=== PATIENT | male | born 1990 | race African-American/Black ===

== ENCOUNTER 2016-05-13 10:39 | Day surgery (SDC) | payer OTHER ==
[~2016-05-13] VITALS: Ht 182.9 cm; Wt 100.5 kg
[2016-05-13] VITALS (18 sets, daily range): BP systolic 122–153; BP diastolic 56–88; PULSE 46–75; RESP 14–25; Ht 182.9 cm; Wt 100.5 kg
[~2016-05-13 10:39] MED LIST: EPHEDrine SULFATE 50 MG/5 ML SYG ONE
[2016-05-13] MEDS ORDERED: CEFAZOLIN 2 GM/50 ML (PMX) 50 ML IVPB SCH (11:30)
[2016-05-13] MEDS ORDERED: SOD CHLORIDE 0.9% 1,000 ML IV SCH (11:30)
[2016-05-13 11:40] LABS: ADD SCAN DIFF NO
[2016-05-13] MEDS ORDERED: VIT D (11:43)
[2016-05-13 11:45] LABS: BASOPHILS % 0.4 % (0.0-2.0); EOSINOPHILS # 0.2 10^3/ul (0.0-0.5); EOSINOPHILS % 2.8 % (0.0-7.0); HEMATOCRIT 44.8 % (42.0-52.0); HEMOGLOBIN 14.3 g/dl (14.0-18.0); LYMPHOCYTES # 2.8 10^3/ul (0.8-2.9); LYMPHOCYTES % 39.9 % (15.0-51.0); MEAN CORPUSCULAR HGB CONC 31.9 g/dl (32.0-37.0); MEAN CORPUSCULAR VOLUME 84.7 fl (82.0-101.0); MEAN PLATELET VOLUME 10.2 fl (7.4-10.4); MONOCYTE # 0.8 10^3/ul (0.3-0.9); MONOCYTES % 10.7 % (0.0-11.0); NEUTROPHIL # 3.2 10^3/ul (1.6-7.5); NEUTROPHILS % 45.8 % (39.0-77.0); PLATELET COUNT 301 10^3/UL (140-415); RED BLOOD COUNT 5.29 10^6/ul (4.70-6.10); RED CELL DISTRIBUTION WIDTH 13.5 % (11.5-14.5); WHITE BLOOD COUNT 7.1 10^3/ul (4.8-10.8)
[2016-05-13 11:54] LABS: CALCIUM 9.2 mg/dl (8.4-10.2); POTASSIUM 4.5 mmol/L (3.5-5.1)
[2016-05-13 12:09] LABS: INR 1.08; PT RATIO 1.1
[2016-05-13 12:10] LABS: PARTIAL THROMBOPLASTIN TIME 28.1 Sec (25.0-35.0)
[2016-05-13] MEDS ORDERED: BUPIVACAINE 0.25% (MPF) 30 ML INJ ONE (12:50)
[2016-05-13] MEDS ORDERED: POLYMYXIN/BACITRACIN 1L IRRIG ONE (12:50)
[2016-05-13] MEDS ORDERED: ROCURONIUM 50 MG INJ ONE (13:22)
[2016-05-13] MEDS ORDERED: LIDOCAINE 2% (SDV) 5 ML INJ ONE (13:22)
[2016-05-13] MEDS ORDERED: SUCCINYLCHOLINE CHLORIDE 100 MG/5 ML SYG IV ONE (13:22)
[2016-05-13] MEDS ORDERED: MIDAZOLAM 1 MG/ML 2 ML INJ ONE (13:22)
[2016-05-13] MEDS ORDERED: FENTAnyl 50 MCG/ML VIAL ONE (13:22)
[2016-05-13] MEDS ORDERED: PROPOFOL 20 ML ONE (13:22)
[2016-05-13] MEDS ORDERED: CEFAZOLIN 1 GM INJ ONE (13:32)
[2016-05-13] MEDS ORDERED: FAMOTIDINE 20 MG INJ ONE (13:32)
[2016-05-13] MEDS ORDERED: ONDANSETRON 4 MG INJ ONE (13:32)
[2016-05-13] MEDS ORDERED: DEXAMETHASONE 4 MG/ML 1 ML INJ ONE (13:32)
[2016-05-13] MEDS ORDERED: GLYCOPYRROLATE 0.4 MG INJ ONE (13:59)
[2016-05-13] MEDS ORDERED: PROCHLORPERAZINE 10 MG INJ IV PRN (14:00)
[2016-05-13] MEDS ORDERED: ONDANSETRON 4 MG INJ IV PRN (14:00)
[2016-05-13] MEDS ORDERED: HYDROmorphONE (0.2 MG/ML) 10ML SYG IV PRN ×3 (14:00)
[2016-05-13] MEDS ORDERED: DIPHENHYDRAMINE 50 MG INJ IV PRN (14:00)
[2016-05-13] MEDS ORDERED: MEPERIDINE 25 MG INJ IV PRN (14:00)
[2016-05-13] MEDS ORDERED: NEOSTIGMINE 3 MG/3 ML SYRINGE ONE ×2 (14:00)
[2016-05-13] MEDS ORDERED: OXYCODONE/ACETAMINOPHEN (5/325) TAB PO PRN (14:00)
[2016-05-13] MEDS ORDERED: KETOROLAC 30 MG INJ ONE (14:04)
[2016-05-13] MEDS ORDERED: HYDROCODONE/APAP (5/325) TAB PO ONE (14:30)
--- NOTE | 2016-05-13 14:39 | OPR ---
DATE OF OPERATION: 05/13/2016 INDICATION: This is a 25-year-old male with a left inguinal hernia. He requests surgical repair. Risks, alternatives, benefits, and personnel were discussed with the patient. The patient expressed understanding and consents to the operation. PREOPERATIVE DIAGNOSIS: Left inguinal hernia. POSTOPERATIVE DIAGNOSIS: Left inguinal hernia. OPERATION: Open left inguinal hernia repair with medium-sized Ultrapro hernia system mesh. SURGEON: Ning Arciniega MD SPECIMEN: None. COMPLICATIONS: None. ANESTHESIA: General. DESCRIPTION OF PROCEDURE: The patient was taken to the OR and prepped and draped in the usual ster ile fashion. Surgical timeout was performed. IV antibiotics were given. Left inguinal oblique inc ision is made with a 10 blade. Dissection cautery was carried down to the external oblique fascia w hich was opened with a 15 blade. This incision was extended medial inferiorly and lateral superiorl y with Metzenbaum scissors. Cord structures were encircled with a Erica drain. Indirect hernia w as identified and reduced and bolstered by the disk portion of the Ultrapro hernia system mesh. Thi s was secured in place with a running 0 Prolene from the pubic tubercle along the shelving edge of t he inguinal ligament and superior to the internal oblique with interrupted 3-0 Vicryl. Onlay mesh w as secured in a similar fashion with a running 0 Prolene from the pubic tubercle along the shelving edge of the inguinal ligament. Straps were created and reapproximated with interrupted 0 Prolene to recreate the inguinal ring. The onlay mesh was secured to the internal oblique with interrupted 3- 0 Vicryl. External oblique fascia was closed with running 3-0 Vicryl. Arleen's was closed with int errupted 3-0 Vicryl. Skin was closed using skin sudhakar. Local anesthesia was injected. Dry dress ings were applied. Dictated By: NING WAN/BROOK Conf#: [id number] DID#: [id number]
[2016-05-13] MEDS: FENTAnyl 50 MCG/ML VIAL IV PRN ×2 (14:44→14:50)
== END 2016-05-13 16:15 | disposition home or self-care (01) ==
LOC: SDS 10:39
PROVIDERS: ATTEND Surgery
DX: K40.90 Unilateral inguinal hernia, without obstruction or gangrene, not specified as recurrent (principal)
CPT/HCPCS: 49505; 80048; 85025; 85610; 85730; C1781; J0330; J0690; J1100; J1170; J1885; J2175; J2250; J2405; J2710; J3010; Z7512; Z7610